=== PATIENT | female | born 1955 | race Caucasian/White ===

== ENCOUNTER 2016-05-31 17:17 | Emergency (ER) | payer OTHER | END 2016-05-31 17:29 | disposition home or self-care (01) | LOC: ER 17:17 | PROC: 0HQGXZZ Repair Left Hand Skin, External Approach (ICD-10-PCS; principal; 2016-05-31) | DX: S61.213A Laceration without foreign body of left middle finger without damage to nail, initial encounter (principal); I10 Essential (primary) hypertension; F17.200 Nicotine dependence, unspecified, uncomplicated; Z88.6 Allergy status to analgesic agent; Y28.8XXA Contact with other sharp object, undetermined intent, initial encounter | CPT/HCPCS: 90471; 90714; 99283 ==